=== PATIENT | female | born 1975 | race Caucasian/White ===

== ENCOUNTER 2016-12-15 17:50 | Emergency (ER) | payer BC, SELFPAY ==
[2016-12-15 18:25] LABS: Red Blood Cell (RBC) Count 4.87 mill/uL (4.20-5.40); White Blood Cell (WBC) Count 10.6 thou/uL (4.8-10.8)
[2016-12-15 18:47] LABS: Band 1 % (5-11); Mean Platelet Volume 7.7 fL (7.4-10.4); Neutrophil 88 % (42-75)
[2016-12-15 18:49] LABS: Troponin I Less than 0.010 ng/mL (< 0.028)
--- NOTE | 2016-12-15 18:49 | RAD ---
FRONTAL VIEW CHEST 12/15/16 No prior comparison. INDICATION: Chest pain. FINDINGS: There is no consolidation, effusion, or pneumothorax. The cardiac silhouette and is within normal li mits in size for portable technique. IMPRESSION: No focal consolidation. POS: [facility]
[2016-12-15 18:53] LABS: ALT (SGPT) 47 U/L (8-55); AST (SGOT) 38 U/L (5-34); Alkaline Phosphatase 31 U/L (40-150); Anion Gap 18 mmol/L (10-20); BUN (Urea Nitrogen) 11 mg/dL (7.0-18.7); Bilirubin, Total 0.4 mg/dL (0.2-1.2); CK (CPK) 161 U/L (29-168); Calc. Creatinine Clearance 0 mL/min (70-130); Calcium 9.7 mg/dL (7.8-10.44); Carbon Dioxide 25 mmol/L (22-29); Chloride 102 mmol/L (98-107); Estimated GFR-MDRD 81; Globulin 3.6 g/dL (2.4-3.5); Lipase 21 U/L (8-78); Protein, Total 7.9 g/dL (6.0-8.3)
[2016-12-15] MEDS ORDERED: Aspirin 325 MG TAB ONE (19:07)
[2016-12-15 21:51] LABS: Troponin I Less than 0.010 ng/mL (< 0.028)
--- NOTE | 2017-02-04 10:40 | EKG ---
Test Reason : CP Blood Pressure : / mmHG Vent. Rate : 072 BPM Atrial Rate : 072 BPM P-R Int : 114 ms QRS Dur : 082 ms QT Int : 368 ms P-R-T Axes : 022 044 037 degrees QTc Int : 402 ms Normal sinus rhythm Normal ECG Confirmed by GUERA OAKES M.D. ([id number]), editor magazine DALTON GOMEZ ([id number]) on 02/04/2017 10:39:54 AM Referred By: Confirmed By:GUERA OAKES M.D.
== END 2016-12-15 22:26 | disposition home or self-care (01) ==
LOC: ERS 17:50
DX: R07.89 Other chest pain (principal); J45.909 Unspecified asthma, uncomplicated; E78.5 Hyperlipidemia, unspecified; F41.9 Anxiety disorder, unspecified; F31.9 Bipolar disorder, unspecified
CPT/HCPCS: 36415; 71010; 80053; 82550; 82553; 83690; 84484; 85025; 93005

== ENCOUNTER 2017-04-17 20:13 | Emergency (ER) | payer SELFPAY ==
[2017-04-17] MEDS ORDERED: Acetaminophen 500 MG TAB ONE (20:49)
--- NOTE | 2017-04-17 23:03 | CT ---
CT HEAD WITHOUT CONTRAST: Technique: Multiple axial tomograms were obtained through the head without IV enhancement. History: Head injury. Fell. Injury. FINDINGS: Ventricles have normal size and position. No evidence of intracranial hemorrhage or contusion. Visual ized sinuses appear clear. IMPRESSION: No acute abnormality identified. POS: [facility]
--- NOTE | 2017-04-17 23:10 | CT ---
CT CERVICAL SPINE: Technique: Multiple axial tomograms were obtained through the cervical spine with multiplanar reconst ruction. History: Fell. Injury to neck. FINDINGS: Cervical vertebrae maintain normal height and alignment. There are degenerative changes seen with ant erior osteophytes noted at C4, C5, and C6. No evidence of fracture identified. IMPRESSION: No acute fracture. POS: [facility]
== END 2017-04-17 22:48 | disposition home or self-care (01) ==
LOC: ERS 20:13
DX: S09.90XA Unspecified injury of head, initial encounter (principal); E78.5 Hyperlipidemia, unspecified; F41.9 Anxiety disorder, unspecified; F31.9 Bipolar disorder, unspecified; E11.39 Type 2 diabetes mellitus with other diabetic ophthalmic complication; H40.9 Unspecified glaucoma; Z79.899 Other long term (current) drug therapy; W01.198A Fall on same level from slipping, tripping and stumbling with subsequent striking against other object, initial encounter
CPT/HCPCS: 70450; 72125

== ENCOUNTER 2017-06-05 09:42 | Outpatient (CLI) | payer OTHER | END 2017-06-05 09:43 | disposition home or self-care (01) | LOC: BICRAD 09:42 | PROVIDERS: ATTEND Internal Medicine | DX: Z02.71 Encounter for disability determination (principal) ==

== ENCOUNTER 2017-06-09 17:27 | Emergency (ER) | payer SELFPAY ==
[2017-06-09] MEDS ORDERED: Acetaminophen 500 MG TAB ONE (17:58)
--- NOTE | 2017-06-09 18:18 | RAD ---
LEFT KNEE FOUR VIEWS: 06/09/17 HISTORY: 41-year-old female with history of left knee pain. FINDINGS: Mild degenerative changes. No fracture or dislocation. IMPRESSION: Unremarkable left knee. Mild degenerative changes. No fracture or dislocation. POS: [facility]
== END 2017-06-09 18:38 | disposition home or self-care (01) ==
LOC: ERS 17:27
DX: S80.02XA Contusion of left knee, initial encounter (principal); E78.5 Hyperlipidemia, unspecified; F41.9 Anxiety disorder, unspecified; F31.9 Bipolar disorder, unspecified; Z79.899 Other long term (current) drug therapy; W01.0XXA Fall on same level from slipping, tripping and stumbling without subsequent striking against object, initial encounter

== ENCOUNTER 2017-10-07 09:19 | Emergency (ER) | payer MEDICAID, SELFPAY ==
[2017-10-07] MEDS ORDERED: Acetaminophen 500 MG TAB ONE (10:19)
--- NOTE | 2017-10-07 11:34 | RAD ---
LEFT ANKLE 3 VIEWS: Date: 10/07/17 HISTORY: Injury to ankle. FINDINGS: There is some minimal arthritic change with some spurring of the tip of the medial malleolus. There i s no fracture or joint effusion. Calcaneal spurs are present. IMPRESSION: No evidence of fracture. POS: [facility]
== END 2017-10-07 10:47 | disposition home or self-care (01) ==
LOC: ERS 09:19
DX: S96.912A Strain of unspecified muscle and tendon at ankle and foot level, left foot, initial encounter (principal); E78.5 Hyperlipidemia, unspecified; F41.9 Anxiety disorder, unspecified; F31.9 Bipolar disorder, unspecified; Z79.899 Other long term (current) drug therapy; X50.9XXA Other and unspecified overexertion or strenuous movements or postures, initial encounter

== ENCOUNTER 2018-02-10 12:25 | Emergency (ER) | payer MEDICAID ==
--- NOTE | 2018-02-10 14:48 | RAD ---
CHEST 2 VIEWS: Date: 02/10/18 HISTORY: Cough. COMPARISON: Radiograph dated 10/06/16. FINDINGS: Lungs are clear. No pneumothorax or effusion. Cardiac silhouette and mediastinal contours within norm al limits. IMPRESSION: No acute intrathoracic abnormality. POS: [facility]
== END 2018-02-10 14:45 | disposition home or self-care (01) ==
LOC: ERS 12:25
DX: T78.40XA Allergy, unspecified, initial encounter (principal); F41.9 Anxiety disorder, unspecified; Z79.899 Other long term (current) drug therapy
CPT/HCPCS: 71046

== ENCOUNTER 2018-04-02 14:13 | Emergency (ER) | payer MEDICAID, SELFPAY | END 2018-04-02 16:09 | disposition home or self-care (01) | LOC: ERS 14:13 | DX: N64.4 Mastodynia (principal); E78.5 Hyperlipidemia, unspecified; F41.9 Anxiety disorder, unspecified; F31.9 Bipolar disorder, unspecified; Z79.899 Other long term (current) drug therapy | CPT/HCPCS: 99283 ==

== ENCOUNTER 2018-06-29 10:22 | Emergency (ER) | payer SELFPAY ==
[2018-06-29] MEDS ORDERED: Acetaminophen 500 MG TAB ONE (10:52)
[2018-06-29 11:01] LABS: #Eosinphils 0.4 thou/uL (0.0-0.7); #Lymphocytes 2.5 thou/uL (1.20-3.40); #Monocytes 0.5 thou/uL (0.11-0.59); #Neutrophils 6.2 thou/uL (1.40-6.50); %Basophils 0.5 % (0.0-1.0); %Eosinophils 3.8 % (0.0-10.0); %Lymphocytes 26.1 % (21.0-51.0); %Monocytes 4.9 % (0.0-10.0); %Neutrophils 64.7 % (42.0-75.0); Mean Corpuscular HGB CONC 33.5 g/dL (32.0-36.0); Mean Corpuscular Hemoglobin 29.2 pg (27.0-31.0); Mean Corpuscular Volume 87.2 fL (78.0-98.0); Mean Platelet Volume 6.9 fL (7.4-10.4); Platelet Count 235 thou/uL (130-400); RBC Distribution Width 13.4 % (11.5-14.5); White Blood Cell (WBC) Count 9.6 thou/uL (4.8-10.8)
[2018-06-29 11:23] LABS: ALT (SGPT) 69 U/L (8-55); AST (SGOT) 36 U/L (5-34); Acetaminophen Less than 6.0 mcg/mL (10.0-30.0); Albumin 4.5 g/dL (3.5-5.0); Alcohol Less than 10 mg/dL (Less than 10); Alkaline Phosphatase 43 U/L (40-150); Anion Gap 16 mmol/L (10-20); BUN (Urea Nitrogen) 11 mg/dL (7.0-18.7); Bilirubin, Total 0.4 mg/dL (0.2-1.2); CK (CPK) 136 U/L (29-168); Calc. Creatinine Clearance 0 mL/min (70-130); Calcium 9.8 mg/dL (7.8-10.44); Carbon Dioxide 23 mmol/L (22-29); Chloride 104 mmol/L (98-107); Estimated GFR-MDRD 89; Globulin 3.1 g/dL (2.4-3.5); Glucose 140 mg/dL (70-105); Potassium 4.2 mmol/L (3.5-5.1); Protein, Total 7.6 g/dL (6.0-8.3); Salicylate Less than 8.0 mg/dL (15.0-30.0); Sodium 139 mmol/L (136-145)
[2018-06-29 11:46] LABS: Bilirubin Negative (Negative); Blood, Urine Negative (Negative); Glucose, Urine (Dipstick) Negative (Negative); Leukocyte Negative (Negative); Nitrite Negative (Negative); Protein, Urine (Dipstick) Trace mg/dL (Neg-Trace); Specific Gravity, Urine 1.022 (1.002-1.036); Urobilinogen 0.2 mg/dL (0.2-1.0)
[2018-06-29 11:50] LABS: Clarity Clear (Clear); Pregnancy Test - Urine (BHCG) Negative (Negative); Pregu Control Background? CLEAR/WHITE (CLR/WHITE); Pregu Control Bar Appear? YES (CONTROL BAR); Specific Gravity 1.022 (1.002-1.036)
[2018-06-29 12:07] LABS: Amphetamine Not Detected (NotDetected); Barbiturates Screen Not Detected (NotDetected); Benzodiazepine Screen Not Detected (NotDetected); Cocaine Metabolite Screen Not Detected (NotDetected); Medtox Control Line Valid? VALID (VALID); Medtox Reader # READER 1; Methadone Not Detected (NotDetected); Methamphetamine Not Detected (NotDetected); Opiate Screen Not Detected (NotDetected); Oxycodone Screen Not Detected (NotDetected); Phencyclidine (PCP) Not Detected (NotDetected); THC/Cannabinoid Screen Not Detected (NotDetected); Tricyclic Screen Not Detected (NotDetected)
== END 2018-06-29 14:46 | disposition home or self-care (01) ==
LOC: ERS 10:22
DX: H60.91 Unspecified otitis externa, right ear (principal); F28 Other psychotic disorder not due to a substance or known physiological condition; E78.5 Hyperlipidemia, unspecified; F41.9 Anxiety disorder, unspecified; F32.9 Major depressive disorder, single episode, unspecified; Z79.899 Other long term (current) drug therapy
CPT/HCPCS: 36415; 80053; 80306; 80307; 81003; 81025; 82550; 84443; 85025; 93005

== ENCOUNTER 2018-08-16 19:18 | Emergency (ER) | payer SELFPAY ==
[2018-08-16] MEDS ORDERED: Acetaminophen 500 MG TAB ONE (22:24)
[2018-08-16] MEDS ORDERED: diphenhydrAMINE 50 MG/ML VIAL ONE (22:24)
[2018-08-16] MEDS ORDERED: Ketorolac Tromethamine 30 MG/ML VIAL ONE (22:24)
[2018-08-16] MEDS ORDERED: Metoclopramide HCl 10 MG/2 ML VIAL ONE (22:24)
[2018-08-16 22:33] LABS: #Basophils 0.1 thou/uL (0.0-0.2); #Eosinphils 0.2 thou/uL (0.0-0.7); #Lymphocytes 2.4 thou/uL (1.20-3.40); #Monocytes 0.5 thou/uL (0.11-0.59); %Basophils 0.5 % (0.0-1.0); %Eosinophils 2.2 % (0.0-10.0); %Lymphocytes 23.3 % (21.0-51.0); %Monocytes 4.9 % (0.0-10.0); Hemoglobin 13.7 g/dL (12.0-16.0); Mean Corpuscular HGB CONC 32.2 g/dL (32.0-36.0); Mean Corpuscular Hemoglobin 28.3 pg (27.0-31.0); Platelet Count 253 thou/uL (130-400); RBC Distribution Width 13.6 % (11.5-14.5); Red Blood Cell (RBC) Count 4.84 mill/uL (4.20-5.40); White Blood Cell (WBC) Count 10.2 thou/uL (4.8-10.8)
[2018-08-16 22:55] LABS: ALT (SGPT) 35 U/L (8-55); AST (SGOT) 22 U/L (5-34); Albumin 4.2 g/dL (3.5-5.0); Alkaline Phosphatase 38 U/L (40-150); Anion Gap 13 mmol/L (10-20); BUN (Urea Nitrogen) 11 mg/dL (7.0-18.7); Bilirubin, Total 0.3 mg/dL (0.2-1.2); Calc. Creatinine Clearance 0 mL/min (70-130); Calcium 9.4 mg/dL (7.8-10.44); Carbon Dioxide 25 mmol/L (22-29); Chloride 103 mmol/L (98-107); Estimated GFR-MDRD Greater than 90; Glucose 103 mg/dL (70-105); Potassium 4.1 mmol/L (3.5-5.1); Protein, Total 7.2 g/dL (6.0-8.3); Sodium 137 mmol/L (136-145)
--- NOTE | 2018-08-16 23:00 | RAD ---
PORTABLE CHEST ONE VIEW: 08/16/18 at 10:38 p.m. HISTORY: Chest pain. FINDINGS: Comparison made with exam of 02/10/18. The heart size is normal. The lungs are well expanded without fo alexandra areas of consolidation, pneumothoraces, or pleural effusions. IMPRESSION: No acute process. POS: [facility]
--- NOTE | 2018-08-18 16:56 | EKG ---
Test Reason : STEWART, ABD PAIN Blood Pressure : / mmHG Vent. Rate : 094 BPM Atrial Rate : 094 BPM P-R Int : 118 ms QRS Dur : 076 ms QT Int : 356 ms P-R-T Axes : 024 041 034 degrees QTc Int : 445 ms Normal sinus rhythm Normal ECG Confirmed by JULIÁN WOOD DO ([id number]), publishing editor MARA DAVIS ([id number]) on 08/18/2018 4:56:22 PM Referred By: Confirmed By:JULIÁN WOOD DO
== END 2018-08-16 23:34 | disposition home or self-care (01) ==
LOC: ERS 19:18
DX: R51 Headache (principal); M25.511 Pain in right shoulder; E78.5 Hyperlipidemia, unspecified; F43.12 Post-traumatic stress disorder, chronic; F41.9 Anxiety disorder, unspecified; F31.9 Bipolar disorder, unspecified; Z79.899 Other long term (current) drug therapy
CPT/HCPCS: 71045; 80053; 84484; 85025; 93005; 96361; 96374; 96375; J1200; J1885; J2765

== ENCOUNTER 2018-11-05 07:10 | Emergency (ER) | payer SELFPAY ==
--- NOTE | 2018-11-05 08:10 | RAD ---
XR Knee Lt 4 View STANDARD: 11/05/2018 7:41 AM CLINICAL INDICATION: Fall with pain COMPARISON: 06/09/2017 FINDINGS: Fracture:No fracture. Arthropathy:Mild osteophytosis. There is a small enthesophyte at the superior aspect patella. Incidental findings:None of significance. IMPRESSION: 1. No acute osseous abnormality.
== END 2018-11-05 09:17 | disposition home or self-care (01) ==
LOC: ERS 07:10
DX: M25.562 Pain in left knee (principal); E78.5 Hyperlipidemia, unspecified; F41.9 Anxiety disorder, unspecified; F31.9 Bipolar disorder, unspecified; F43.10 Post-traumatic stress disorder, unspecified

== ENCOUNTER 2019-02-06 15:33 | Emergency (ER) | payer SELFPAY | END 2019-02-06 16:34 | disposition home or self-care (01) | LOC: ERS 15:33 | DX: M25.562 Pain in left knee (principal); E78.5 Hyperlipidemia, unspecified; F41.9 Anxiety disorder, unspecified; W22.03XA Walked into furniture, initial encounter | CPT/HCPCS: 99283 ==